=== PATIENT | female | born 1955 | race Caucasian/White ===

== ENCOUNTER → 2016-08-08 | Outpatient (CLI) | payer OTHER ==
[~2016-08-08] MED LIST: BIMA0.01 OPB; CIPR-255 PO; OXYC-57 PO; PHEN-1043 PO; PRMVC PV
--- NOTE | 2016-08-08 13:07 | DIAGNOSTIC IMAGING REPORT ---
BILATERAL CAROTID DOPPLER STUDY HISTORY: Visual change LOW TENSION GLAUCOMA COMPARISON: None. TECHNIQUE: Real-time, grayscale, and color Doppler sonography of the carotid arteries was performed. Imaging reviewed in the transverse and longitudinal planes. All measurements were calculated based on NASCET criteria. FINDINGS: Antegrade flow is seen in the bilateral vertebral arteries. The brachial pressures are hemodynamically similar. The peak systolic velocity within the right ICA is 67. The right systolic ratio is 1.0. The peak systolic velocity within the left ICA is 71. The left systolic ratio is 1.0. IMPRESSION: No hemodynamically significant stenosis seen within the carotid arteries. Minimal plaque formation bilaterally Electronically signed by: Shawn Loza M.D. 08/08/2016 1:04 PM Dictated Date/Time: 08/08/2016 12:51 PM
== END | disposition home or self-care (01) ==
LOC: C.ULTR 12:09
PROVIDERS: ATTEND Ophthalmology
DX: H40.1231 Low-tension glaucoma, bilateral, mild stage (principal)

== ENCOUNTER 2017-04-01 13:18 | Inpatient (IN) | payer OTHER ==
[~2017-04-01] VITALS: Ht 152.4 cm; Wt 66.0 kg
[2017-04-01] MEDS ORDERED: ONDANSETRON INJ 2 MG/ML 2 ML VIAL ONE (13:41)
[2017-04-01] MEDS ORDERED: KETOROLAC TROMETHAMINE 30 MG/ML VIAL IV STA (13:57)
[2017-04-01] MEDS ORDERED: SODIUM CHLORIDE 0.9% 1000ML 1,000 ML IV STA (13:57)
[2017-04-01] MEDS ORDERED: ONDANSETRON INJ 2 MG/ML 2 ML VIAL IV STA ×2 (13:57→14:01)
[2017-04-01] MEDS ORDERED: HYDROmorphone INJ 0.5 MG/0.5 ML SYR IV STA (13:57)
[2017-04-01 14:04] LABS: BASO % 0.7 %; BASO ABS # 0.06 K/uL (0-0.2); COMPLETE YES; EOS % 2.6 %; HEMATOCRIT 40.1 % (37-47); IG% 0.6 %; LYMPH % 43.8 %; MEAN CELL VOLUME 91.6 fL (80-100); MEAN CORPUSCULAR HEMOGLOBIN 30.6 pg (25-34); MEAN CORPUSCULAR HGB CONC 33.4 g/dl (32-36); MEAN PLATELET VOLUME 9.8 fL (7.4-10.4); MONO % 6.4 %; NEUT % 45.9 %; PLATELET COUNT 321 K/uL (130-400); RED BLOOD COUNT 4.38 M/uL (4.2-5.4); WHITE BLOOD COUNT 8.22 K/uL (4.8-10.8)
[2017-04-01 14:27] LABS: BUN/CREATININE RATIO 16.3 (10-20); CREATININE 1.48 mg/dl (0.60-1.20); POTASSIUM 3.3 mmol/L (3.5-5.1)
[2017-04-01] MEDS ORDERED: BIMA0.01 OPB (14:36)
[2017-04-01] MEDS ORDERED: PRMVC PV (14:36)
--- NOTE | 2017-04-01 15:26 | DIAGNOSTIC IMAGING REPORT ---
CT SCAN OF THE ABDOMEN AND PELVIS WITHOUT IV CONTRAST CLINICAL HISTORY: Right flank pain. Nausea and vomiting. COMPARISON STUDY: No priors. TECHNIQUE: CT scan of the abdomen and pelvis is performed from the lung bases to the proximal femora. Images are reviewed in the axial, sagittal, and coronal planes. IV contrast was not administered for this examination as per the referring clinician. A dose lowering technique was utilized adhering to the principles of ALARA. CT DOSE: 797.44 mGy.cm FINDINGS: Lung bases: The heart is normal in size and without pericardial effusion. There is bibasilar scarring versus atelectasis. Mild bronchiectasis is present in the lower lobes. No airspace consolidation or pleural effusion is seen. There is a tiny hiatal hernia. Liver: The unenhanced liver is normal in size, contour, and attenuation. There is no intrahepatic biliary ductal dilatation. Gallbladder: Unremarkable. Spleen: Normal in size and attenuation. Pancreas: The unenhanced pancreas is grossly unremarkable. Adrenal glands: Unremarkable. Kidneys: The unenhanced kidneys demonstrate cortical atrophy. There is a 7 mm obstructing calculus at the right vesicoureteral junction seen on image #[id number]. This causes moderate right hydroureteronephrosis. There is associated right-sided perinephric and periureteric stranding. No left hydronephrosis is seen. There are at least 4 additional nonobstructing right renal calculi measuring up to 6 mm. There are least 5 nonobstructing left renal calculi measuring up to 9 mm. There is no evidence of contour deforming renal mass lesion. Abdominal vasculature: The abdominal aorta is normal in course and caliber noting mild atherosclerotic calcification. Bowel: There is mild colonic diverticulosis without CT evidence of acute diverticulitis. No bowel obstruction is seen. The appendix is not identified and reported surgically absent. Peritoneum: There is no intraperitoneal free air or abdominal ascites. There is a small fat-containing umbilical hernia. Lymphadenopathy: None. Pelvic viscera: The bladder is normal as visualized. Exophytic uterine fibroids are suggested. No adnexal lesion is seen. Skeletal structures: The skeletal structures are osteopenic. Mild lumbosacral spondylosis is observed. No lytic or blastic lesions are seen. IMPRESSION: 1. There is a 7 mm obstructing calculus at the right vesicoureteral junction. This causes moderate right hydroureteronephrosis. 2. Additional bilateral nonobstructing renal calculi as above. 3. Mild colonic diverticulosis without CT evidence of acute diverticular dose. 4. Suspect uterine fibroids. 5. Additional findings as above. Electronically signed by: Jaciel Pelayo M.D. 04/01/2017 3:24 PM Dictated Date/Time: 04/01/2017 3:18 PM
[2017-04-01] MEDS: HYDROmorphone INJ 0.5 MG/0.5 ML SYR IV PRN ×2 (15:38→16:52)
[2017-04-01 15:54] LABS: URINE APPEARANCE CLOUDY (CLEAR); URINE BILIRUBIN NEG (NEG); URINE COLOR YELLOW; URINE EPITHELIAL CELL AUTO >30 /lpf (0-5); URINE NITRITE NEG (NEG); UROBILINOGEN NEG (NEG); ZZUR CULT IF INDIC CLEAN CATCH YES
[2017-04-01 16:46] LABS: MANUAL MICROSCOPIC REQUIRED? NO; REVIEW REQ? NO
[2017-04-01] MEDS ORDERED: METOCLOPRAMIDE HCL INJ 5 MG/ML 2 ML VIAL IV STA (16:49)
[2017-04-01] MEDS ORDERED: DiphenhydrAMINE HCL 50 MG/ML VIAL IV STA (16:49)
[2017-04-01] MEDS ORDERED: METOCLOPRAMIDE HCL INJ 5 MG/ML 2 ML VIAL ONE (16:50)
--- NOTE | 2017-04-01 19:21 | EMERGENCY ROOM VISIT NOTE ---
History Report prepared by Tahira: Galina Bob Under the Supervision of: Dr. Philip Kincaid M.D. First contact with patient: 13:44 Chief Complaint: FLANK PAIN Stated Complaint: ABDOMINAL PAIN History of Present Illness The patient is a 62 year old female who presents to the Emergency Room with complaints of worsening right flank pain starting this afternoon. The patient currently rates her pain as a 6/10 in severity. She states that the pain starts in her back and radiates to the front. She notes a history of kidney stones and states that this feels the same. She reports her last stone was 23 years ago. She notes that she had little bursts of the pain with the last being four days ago. The patient complains of nausea and vomiting. She reports that she has vomited 6 times. Pt denies LOC, headache, fevers, chills, diaphoresis, visual changes, neck pain , chest pain, breathing difficulties, abdominal pain, melena, hematochezia, urinary symptoms, numbness, weakness, lymphadenopathy, rash, or other complaints. Source of History: patient Onset: this afternoon Position: other (right flank) Symptom Intensity: 6/10 Quality: other (radiating) Timing: worsening Associated Symptoms: + nausea, + vomiting Review of Systems See HPI for pertinent positives and negatives. A total of ten systems were reviewed and were otherwise negative. Past Medical & Surgical Medical Problems: (1) Kidney stones Surgical Problems: (1) S/P knee replacement Family History No pertinent family history Social History Smoking Status: Never Smoker Marital Status: Housing Status: lives with significant other Occupation Status: employed Current/Historical Medications Scheduled Bimatoprost (Lumigan), 1 DROPS OPB HS Estrogens, Conjugated (Premarin), 1 APPLN PV WK Allergies Coded Allergies: Sulfa Drugs (Verified Allergy, Unknown, 04/01/17) Physical Exam Vital Signs Date Time Temp Pulse Resp B/P (MAP) Pulse Ox O2 Delivery O2 Flow Rate FiO2 04/01/17 17:35 94 Nasal Cannula 2.0 04/01/17 17:30 76 18 129/47 98 Room Air 04/01/17 15:30 73 18 150/50 95 Room Air 04/01/17 13:26 36.8 79 18 165/84 95 Room Air Physical Exam GENERAL: Awake, alert, very uncomfortable-appearing, in no distress, actively vomiting HENT: Normocephalic, atraumatic. Oropharynx unremarkable. EYES: Normal conjunctiva. Sclera non-icteric. NECK: Supple. No nuchal rigidity. FROM. No JVD. RESPIRATORY: Clear to auscultation. CARDIAC: Regular rate, normal rhythm. Extremities warm and well perfused. Pulses equal. ABDOMEN: Soft, non-distended. Mild RUQ tenderness to palpation. No rebound or guarding. No masses. RECTAL: Deferred. MUSCULOSKELETAL: Chest examination reveals no tenderness. The back is symmetrical on inspection without obvious abnormality. There is significant right CVA tenderness to palpation. No joint edema. LOWER EXTREMITIES: Calves are equal size bilaterally and non-tender. No edema. No discoloration. NEURO: Normal sensorium. No sensory or motor deficits noted. SKIN: No rash or jaundice noted. Medical Decision & Procedures ER Provider Diagnostic Interpretation: Radiology results as stated below per my review and radiologist interpretation: CT SCAN OF THE ABDOMEN AND PELVIS WITHOUT IV CONTRAST CLINICAL HISTORY: Right flank pain. Nausea and vomiting. COMPARISON STUDY: No priors. TECHNIQUE: CT scan of the abdomen and pelvis is performed from the lung bases to the proximal femora. Images are reviewed in the axial, sagittal, and coronal planes. IV contrast was not administered for this examination as per the referring clinician. A dose lowering technique was utilized adhering to the principles of ALARA. CT DOSE: 797.44 mGy.cm FINDINGS: Lung bases: The heart is normal in size and without pericardial effusion. There is bibasilar scarring versus atelectasis. Mild bronchiectasis is present in the lower lobes. No airspace consolidation or pleural effusion is seen. There is a tiny hiatal hernia. Liver: The unenhanced liver is normal in size, contour, and attenuation. There is no intrahepatic biliary ductal dilatation. Gallbladder: Unremarkable. Spleen: Normal in size and attenuation. Pancreas: The unenhanced pancreas is grossly unremarkable. Adrenal glands: Unremarkable. Kidneys: The unenhanced kidneys demonstrate cortical atrophy. There is a 7 mm obstructing calculus at the right vesicoureteral junction seen on image #[id number]. This causes moderate right hydroureteronephrosis. There is associated right-sided perinephric and periureteric stranding. No left hydronephrosis is seen. There are at least 4 additional nonobstructing right renal calculi measuring up to 6 mm. There are least 5 nonobstructing left renal calculi measuring up to 9 mm. There is no evidence of contour deforming renal mass lesion. Abdominal vasculature: The abdominal aorta is normal in course and caliber noting mild atherosclerotic calcification. Bowel: There is mild colonic diverticulosis without CT evidence of acute diverticulitis. No bowel obstruction is seen. The appendix is not identified and reported surgically absent. Peritoneum: There is no intraperitoneal free air or abdominal ascites. There is a small fat-containing umbilical hernia. Lymphadenopathy: None. Pelvic viscera: The bladder is normal as visualized. Exophytic uterine fibroids are suggested. No adnexal lesion is seen. Skeletal structures: The skeletal structures are osteopenic. Mild lumbosacral spondylosis is observed. No lytic or blastic lesions are seen. IMPRESSION: 1. There is a 7 mm obstructing calculus at the right vesicoureteral junction. This causes moderate right hydroureteronephrosis. 2. Additional bilateral nonobstructing renal calculi as above. 3. Mild colonic diverticulosis without CT evidence of acute diverticular dose. 4. Suspect uterine fibroids. 5. Additional findings as above. Electronically signed by: Jaciel Pelayo M.D. 04/01/2017 3:24 PM Dictated Date/Time: 04/01/2017 3:18 PM Laboratory Results 04/01/17 13:45 Red Blood Count 4.38, Mean Corpuscular Volume 91.6, Mean Corpuscular Hemoglobin 30.6, Mean Corpuscular Hemoglobin Concent 33.4, Mean Platelet Volume 9.8, Neutrophils (%) (Auto) 45.9, Lymphocytes (%) (Auto) 43.8, Monocytes (%) (Auto) 6.4, Eosinophils (%) (Auto) 2.6, Basophils (%) (Auto) 0.7, Neutrophils # (Auto) 3.77, Lymphocytes # (Auto) 3.60, Monocytes # (Auto) 0.53, Eosinophils # (Auto) 0.21, Basophils # (Auto) 0.06 04/01/17 13:45 Test 04/01/17 13:45 04/01/17 15:30 White Blood Count 8.22 K/uL (4.8-10.8) Red Blood Count 4.38 M/uL (4.2-5.4) Hemoglobin 13.4 g/dL (12.0-16.0) Hematocrit 40.1 % (37-47) Mean Corpuscular Volume 91.6 fL (80-100) Mean Corpuscular Hemoglobin 30.6 pg (25-34) Mean Corpuscular Hemoglobin Concent 33.4 g/dl (32-36) Platelet Count 321 K/uL (130-400) Mean Platelet Volume 9.8 fL (7.4-10.4) Neutrophils (%) (Auto) 45.9 % Lymphocytes (%) (Auto) 43.8 % Monocytes (%) (Auto) 6.4 % Eosinophils (%) (Auto) 2.6 % Basophils (%) (Auto) 0.7 % Neutrophils # (Auto) 3.77 K/uL (1.4-6.5) Lymphocytes # (Auto) 3.60 K/uL (1.2-3.4) Monocytes # (Auto) 0.53 K/uL (0.11-0.59) Eosinophils # (Auto) 0.21 K/uL (0-0.5) Basophils # (Auto) 0.06 K/uL (0-0.2) RDW Standard Deviation 46.8 fL (36.4-46.3) RDW Coefficient of Variation 14.0 % (11.5-14.5) Immature Granulocyte % (Auto) 0.6 % Immature Granulocyte # (Auto) 0.05 K/uL (0.00-0.02) Anion Gap 7.0 mmol/L (3-11) Est Creatinine Clear Calc Drug Dose 34.3 ml/min Estimated GFR () 44.1 Estimated GFR (Non- 38.1 BUN/Creatinine Ratio 16.3 (10-20) Calcium Level 9.0 mg/dl (8.5-10.1) Total Bilirubin 0.4 mg/dl (0.2-1) Direct Bilirubin 0.1 mg/dl (0-0.2) Aspartate Amino Transf (AST/SGOT) 22 U/L (15-37) Alanine Aminotransferase (ALT/SGPT) 29 U/L (12-78) Alkaline Phosphatase 99 U/L (45-117) Total Protein 7.6 gm/dl (6.4-8.2) Albumin 3.8 gm/dl (3.4-5.0) Lipase 277 U/L (73-393) Urine Color YELLOW Urine Appearance CLOUDY (CLEAR) Urine pH 6.0 (4.5-7.5) Urine Specific [place] 1.020 (1.000-1.030) Urine Protein NEG (NEG) Urine Glucose (UA) NEG (NEG) Urine Ketones NEG (NEG) Urine Occult Blood 3+ (NEG) Urine Nitrite NEG (NEG) Urine Bilirubin NEG (NEG) Urine Urobilinogen NEG (NEG) Urine Leukocyte Esterase SMALL (NEG) Urine WBC (Auto) 10-30 /hpf (0-5) Urine RBC (Auto) >30 /hpf (0-4) Urine Hyaline Casts (Auto) 1-5 /lpf (0-5) Urine Epithelial Cells (Auto) >30 /lpf (0-5) Urine Bacteria (Auto) NEG (NEG) Laboratory results reviewed by me Medications Administered Medications (Trade) Dose Ordered Sig/Grant Route Start Time Stop Time Status Last Admin Dose Admin Ondansetron HCl (Zofran Inj) 4 mg NOW STAT IV 04/01/17 13:57 04/01/17 13:58 DC 04/01/17 13:57 4 MG Sodium Chloride 1,000 ml @ 999 mls/hr Q1H1M STAT IV 04/01/17 13:57 04/01/17 14:57 DC 04/01/17 14:18 999 MLS/HR Hydromorphone HCl (Dilaudid Inj) 0.5 mg NOW STAT IV 04/01/17 13:57 04/01/17 13:58 DC 04/01/17 14:17 0.5 MG Ketorolac Tromethamine (Toradol Inj) 10 mg NOW STAT IV 04/01/17 13:57 04/01/17 13:59 DC 04/01/17 14:18 10 MG Hydromorphone HCl (Dilaudid Inj) 0.5 mg Q15M PRN IV 04/01/17 14:00 04/15/17 13:59 04/01/17 16:52 0.5 MG Ondansetron HCl (Zofran Inj) 4 mg NOW STAT IV 04/01/17 14:01 04/01/17 14:02 PR 04/01/17 14:18 4 MG Metoclopramide HCl (Reglan Inj) 5 mg NOW STAT IV 04/01/17 16:49 04/01/17 16:51 DC 04/01/17 16:52 5 MG Diphenhydramine HCl (Benadryl Inj) 12 mg NOW STAT IV 04/01/17 16:49 04/01/17 16:51 DC 04/01/17 16:56 12 MG ED Course 1341: Ordered Zofran Inj 4 mg .ROUTE. 1349: The patient was evaluated in room B12A. A complete history and physical exam was performed. 1357: Ordered Toradol Inj 10 mg IV, Dilaudid Inj 0.5 mg IV, NSS 1000 ml @ 999 mls/hr IV, Zofran Inj 4 mg IV. 1400: Ordered Dilaudid Inj 0.5 mg PRN IV pain. 1401: Ordered Zofran Inj 4 mg IV. 1517: I reevaluated the patient and she is feeling better. 1525: I reevaluated the patient and her pain started again. 1724: I reevaluated the patient and updated her on the treatment plan. 1728: Discussed the patient's case with Dr. Kramer. The patient will be evaluated for further treatment and disposition. Medical Decision Prior records/ancillary studies reviewed. Triage Nursing notes reviewed and agree them. Additional history obtained from the family. The patient's history was concerning for flank and abdominal pain. Differential diagnosis: Etiologies such as renal colic, appendicitis, diverticulitis, mesenteric ischemia, aortic pathology, infections, inflammatory bowel disease, PUD, biliary pathology, UTI, as well as others were entertained. Physical examination findings: As above. ER treatment provided: Multiple doses of IV Dilaudid IV Zofran 2 IV Reglan IV Benadryl On reassessment the patient felt marginally better. She still nauseated and experiencing pain Diagnostic interpretation by me: The labs revealed an unremarkable CBC and chemistry panel. Urinalysis revealed hematuria. There was no sign of UTI. Imaging studies: CT of the abdomen and pelvis as above. The patient is asymptomatic from a large kidney stone. She cannot tolerate oral intake at this time. She will need to be treated in the hospital. Consultation: A consultation was placed with the hospitalist. The case was discussed and diagnostics were reviewed. The patient was evaluated in the ER for further treatment. Medication Reconcilliation Current Medication List: was personally reviewed by me Blood Pressure Screening Patient's blood pressure: Elevated blood pressure Will be further monitored by hospitalist. Consults Time Called: 172 Consulting Physician: Dr. Kramer Returned Call: [phone] Discussed the patient's case with Dr. Kramer. The patient will be evaluated for further treatment and disposition. Impression Primary Impression: Ureterolithiasis Additional Impressions: Intractable pain Intractable vomiting Scribe Attestation The scribe's documentation has been prepared under my direction and personally reviewed by me in its entirety. I confirm that the note above accurately reflects all work, treatment, procedures, and medical decision making performed by me. Departure Information Dispostion Being Evaluated By Hospitalist Referrals Hay Gayle M.D. (PCP) Patient Instructions My [facility] Problem Qualifiers
[2017-04-01] MEDS ORDERED: HYDROmorphone INJ 0.5 MG/0.5 ML SYR IV PRN (19:45)
[2017-04-01] MEDS ORDERED: ONDANSETRON INJ 2 MG/ML 2 ML VIAL IV PRN (19:45)
[2017-04-01 20:30] VITALS: Ht 152.4 cm; Wt 66.0 kg
[2017-04-01 20:36] VITALS: BP 115/73; PULSE 68; TEMP 36.6; O2SAT 95
[2017-04-01] MEDS: NSS + 20MEQ KCL 1000ML 1,000 ML IV SCH (20:53)
[2017-04-01] MEDS: METOCLOPRAMIDE HCL INJ 5 MG/ML 2 ML VIAL IV SCH (21:45)
--- NOTE | 2017-04-01 23:08 | History and Physical ---
History & Physical Date & Time of Service: Apr 01, 2017 at 22:55 Chief Complaint: Ureterolithiasis Primary Care Physician: Debora Prakash D.O. 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 She was treated with multiple rounds of antiemetics and pain medicine in the ER. She was found on the CT scan of the abdomen and pelvis to have an obstructing 7 mm stone on the right side with moderate hydroureteronephrosis on the right with perinephric stranding. She also had multiple bilateral nonobstructing renal stones. Her creatinine was elevated at 1.48 and she is unaware of any baseline chronic kidney disease. She has not had any urinary symptoms or fevers at home. She did not have an elevated white blood cell count here She will be admitted for obstructive ureterolithiasis with a large stone and will need urology consultation for definitive management. She is also admitted for acute kidney injury. Past Medical/Surgical History PMH: Nephrolithiasis Vaginal atrophy Osteoarthritis Glaucoma PSH: Right TKA Lithotripsy 2 C-sections Appendectomy 2 laparoscopies for pelvic pain with adhesions Family History No pertinent family history Dad-Parkinson's disease, gastric cancer, in his late 80s Mom-dementia, of a CVA at age 88 Brother-liver cancer, hepatitis, previous IV drug abuser Brother-healthy Sister-healthy Social History Smoking Status: Never Smoker Alcohol Use: occasionally Drug Use: none Marital Status: Housing status: lives with family Occupational Status: employed (as a respiratory therapist here at [employer]) Multi-Drug Resistant Organisms History of MDRO: No Allergies Coded Allergies: Sulfa Antibiotics (Verified Allergy, Unknown, Unknown, 04/01/17) Home Medications Scheduled Bimatoprost (Lumigan), 1 DROPS OPB HS Estrogens, Conjugated (Premarin), 1 APPLN PV WK Review of Systems Constitutional: No fever, No chills Eyes: No problem reported ENT: No problem reported Respiratory: No cough, No shortness of breath Cardiovascular: No chest pain Abdomen: + pain, + nausea, + vomiting, + diarrhea (intermittently for the last 2 weeks) Musculoskeletal: + joint pain (chronic joint pains) Genitourinary - Female: No dysuria, No urinary frequency, No urinary urgency Neurologic: No problem reported Psychiatric: No problem reported Endocrine: No problem reported Hematologic / Lymphatic: No problem reported Integumentary: No problem reported Allergic / Immunologic: No problem reported Physical Exam Vital Signs Date Time Temp Pulse Resp B/P (MAP) Pulse Ox O2 Delivery O2 Flow Rate FiO2 04/01/17 20:36 36.6 68 17 115/73 (87) 95 Room Air 04/01/17 20:30 Room Air 04/01/17 20:13 36.8 75 18 101/57 94 Free Flow/[place] 04/01/17 19:00 36.7 78 18 100/62 94 Nasal Cannula 2.0 04/01/17 17:35 94 Nasal Cannula 2.0 04/01/17 17:30 76 18 129/47 98 Room Air 04/01/17 15:30 73 18 150/50 95 Room Air 04/01/17 13:26 36.8 79 18 165/84 95 Room Air General Appearance: WD/WN, no apparent distress Head: normocephalic, atraumatic Eyes: normal inspection, PERRL, EOMI, sclerae normal ENT: hearing grossly normal, pharynx normal Neck: supple, no adenopathy, trachea midline Respiratory/Chest: lungs clear, normal breath sounds, no respiratory distress, no accessory muscle use Cardiovascular: regular rate, rhythm, no edema, no gallop, no murmur, normal peripheral pulses Abdomen/GI: normal bowel sounds, soft, no organomegaly, no pulsatile mass, + tenderness (in the right lower quadrant without guarding or rebound), + pertinent finding (negative for CVA tenderness) Back: no CVA tenderness Extremities/Musculoskelatal: normal inspection, no calf tenderness, normal capillary refill, no pedal edema, normal range of motion Neurologic/Psych: alert, normal mood/affect, oriented x 3 Skin: normal color, warm/dry, no rash Lymphatic: no adenopathy Diagnostics Laboratory Results Results Past 24 Hours Test 04/01/17 13:45 04/01/17 15:30 Range/Units White Blood Count 8.22 4.8-10.8 K/uL Red Blood Count 4.38 4.2-5.4 M/uL Hemoglobin 13.4 12.0-16.0 g/dL Hematocrit 40.1 37-47 % Mean Corpuscular Volume 91.6 80-100 fL Mean Corpuscular Hemoglobin 30.6 25-34 pg Mean Corpuscular Hemoglobin Concent 33.4 32-36 g/dl Platelet Count 321 130-400 K/uL Mean Platelet Volume 9.8 7.4-10.4 fL Neutrophils (%) (Auto) 45.9 % Lymphocytes (%) (Auto) 43.8 % Monocytes (%) (Auto) 6.4 % Eosinophils (%) (Auto) 2.6 % Basophils (%) (Auto) 0.7 % Neutrophils # (Auto) 3.77 1.4-6.5 K/uL Lymphocytes # (Auto) 3.60 1.2-3.4 K/uL Monocytes # (Auto) 0.53 0.11-0.59 K/uL Eosinophils # (Auto) 0.21 0-0.5 K/uL Basophils # (Auto) 0.06 0-0.2 K/uL RDW Standard Deviation 46.8 36.4-46.3 fL RDW Coefficient of Variation 14.0 11.5-14.5 % Immature Granulocyte % (Auto) 0.6 % Immature Granulocyte # (Auto) 0.05 0.00-0.02 K/uL Sodium Level 137 136-145 mmol/L Potassium Level 3.3 3.5-5.1 mmol/L Chloride Level 103 98-107 mmol/L Carbon Dioxide Level 27 21-32 mmol/L Anion Gap 7.0 3-11 mmol/L Blood Urea Nitrogen 24 7-18 mg/dl Creatinine 1.48 0.60-1.20 mg/dl Est Creatinine Clear Calc Drug Dose 34.3 ml/min Estimated GFR () 44.1 Estimated GFR (Non- 38.1 BUN/Creatinine Ratio 16.3 10-20 Random Glucose 116 70-99 mg/dl Calcium Level 9.0 8.5-10.1 mg/dl Total Bilirubin 0.4 0.2-1 mg/dl Direct Bilirubin 0.1 0-0.2 mg/dl Aspartate Amino Transf (AST/SGOT) 22 15-37 U/L Alanine Aminotransferase (ALT/SGPT) 29 12-78 U/L Alkaline Phosphatase 99 45-117 U/L Total Protein 7.6 6.4-8.2 gm/dl Albumin 3.8 3.4-5.0 gm/dl Lipase 277 73-393 U/L Urine Color YELLOW Urine Appearance CLOUDY CLEAR Urine pH 6.0 4.5-7.5 Urine Specific [place] 1.020 1.000-1.030 Urine Protein NEG NEG Urine Glucose (UA) NEG NEG Urine Ketones NEG NEG Urine Occult Blood 3+ NEG Urine Nitrite NEG NEG Urine Bilirubin NEG NEG Urine Urobilinogen NEG NEG Urine Leukocyte Esterase SMALL NEG Urine WBC (Auto) 10-30 0-5 /hpf Urine RBC (Auto) >30 0-4 /hpf Urine Hyaline Casts (Auto) 1-5 0-5 /lpf Urine Epithelial Cells (Auto) >30 0-5 /lpf Urine Bacteria (Auto) NEG NEG Microbiology Results 04/01/17 Urine Culture, Received Pending Diagnostic Radiology CT abdomen/pelvis: 1. There is a 7 mm obstructing calculus at the right vesicoureteral junction. This causes moderate right hydroureteronephrosis. 2. Additional bilateral nonobstructing renal calculi as above. 3. Mild colonic diverticulosis without CT evidence of acute diverticular dose. 4. Suspect uterine fibroids. 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 She was treated with multiple rounds of antiemetics and pain medicine in the ER. She was found on the CT scan of the abdomen and pelvis to have an obstructing 7 mm stone on the right side with moderate hydroureteronephrosis on the right with perinephric stranding. She also had multiple bilateral nonobstructing renal stones. Her creatinine was elevated at 1.48 and she is unaware of any baseline chronic kidney disease. She has not had any urinary symptoms or fevers at home. She did not have an elevated white blood cell count here She will be admitted for obstructive ureterolithiasis with a large stone and will need urology consultation for definitive management. She is also admitted for acute kidney injury. Right sided obstructive ureterolithiasis with right hydroureteronephrosis/Nausea /vomiting-no evidence of infection at this time,, UA looks abnormal but is grossly contaminated with epithelial cells. She is afebrile and has no leukocytosis. She does not need antibiotics at this time. -Admit to medical/surgical floor -Consult urology for definitive management of her large kidney stone -Continue IV Dilaudid as needed for pain -Continue Zofran and Reglan as needed for nausea and vomiting which is likely related to pain in the kidney stone -We'll start antibiotics only if spikes fever and then will need more urgent urology management -Continue IV fluids with normal saline with 20 of KCl at 125 ML's per hour Acute kidney injury-most likely acute as patient is unaware of any chronic kidney disease, creatinine was 1.48 on admission. His likely due to obstructive stone and hydronephrosis. -Continue IV fluids -Management of kidney stone -Follow PRP Hypokalemia-mild -Replacing potassium in IV fluids as above Glaucoma-stable -Lumigan drops to continue Prophylaxis-SCDs only in case of need for procedure Disposition to home when stable Full code Level of Care Med/Surg Advanced Directives Existing Living Will: Yes Existing Power of Credit Assistant: Yes Resuscitation Status FULL RESUSCITATION VTE Prophylaxis VTE Risk Assessment Done? Y/N: Yes Risk Level: Low Given or contraindicated: SCD's Additional Copies To Debora Prakash D.O.
[2017-04-01 23:30] VITALS: BP 117/48; PULSE 65; TEMP 37.1; O2SAT 96
[2017-04-01] MEDS ORDERED: BIMATOPROST 0.01% OP SOLN 2.5 ML BTL OPB SCH (23:30)
[2017-04-02] MEDS: NSS + 20MEQ KCL 1000ML 1,000 ML IV SCH ×2 (03:49→12:30)
[2017-04-02] MEDS: METOCLOPRAMIDE HCL INJ 5 MG/ML 2 ML VIAL IV SCH ×3 (03:49→16:00)
[2017-04-02 06:44] LABS: BASO % 0.6 %; BASO ABS # 0.04 K/uL (0-0.2); COMPLETE YES; EOS % 1.8 %; HEMATOCRIT 37.6 % (37-47); IG% 0.1 %; LYMPH % 26.4 %; LYMPH ABS # 1.77 K/uL (1.2-3.4); MEAN CELL VOLUME 92.4 fL (80-100); MEAN CORPUSCULAR HGB CONC 32.4 g/dl (32-36); MEAN PLATELET VOLUME 9.6 fL (7.4-10.4); MONO % 7.3 %; NEUT % 63.8 %; PLATELET COUNT 261 K/uL (130-400); RED BLOOD COUNT 4.07 M/uL (4.2-5.4)
[2017-04-02 07:17] LABS: BUN/CREATININE RATIO 17.5 (10-20); CALCIUM 7.9 mg/dl (8.5-10.1); CREATININE 0.98 mg/dl (0.60-1.20); POTASSIUM 4.1 mmol/L (3.5-5.1)
[2017-04-02 08:00] VITALS: BP 120/72; PULSE 68; TEMP 36.9; O2SAT 94
[2017-04-02 08:10] VITALS: O2SAT 94
--- NOTE | 2017-04-02 09:30 | DIAGNOSTIC IMAGING REPORT ---
CHEST 2 VIEWS ROUTINE CLINICAL HISTORY: PRE-OP preoperative evaluation COMPARISON STUDY: No previous studies for comparison. FINDINGS: The bones soft tissues and hemidiaphragms are normal. The cardiomediastinal silhouette is normal. The lungs are clear. The pulmonary vasculature is normal. IMPRESSION: Negative chest. The above report was generated using voice recognition software. It may contain grammatical, syntax or spelling errors. Electronically signed by: Shawn Loza M.D. 04/02/2017 9:28 AM Dictated Date/Time: 04/02/2017 9:28 AM
--- NOTE | 2017-04-02 09:33 | DIAGNOSTIC IMAGING REPORT ---
KUB HISTORY: Calculus of the right ureterovesicular junction RIGHT UVJ STONE COMPARISON: CT abdomen and pelvis 04/01/2017 FINDINGS: The bowel gas pattern is non-obstructive. There is no organomegaly. Bilateral nephrolithiasis redemonstrated. Largest calculus measures 9 mm projecting over the inferior pole left kidney. Previously described linear 7 mm calculus of the right ureterovesicular junction appears unchanged. Multiple phleboliths of the pelvis redemonstrated. No pneumoperitoneum or pneumatosis. No fracture. IMPRESSION: 1. Unchanged position of the 7 mm calculus of the right ureterovesicular junction. 2. Bilateral nephrolithiasis redemonstrated. Electronically signed by: Santo Martinez M.D. 04/02/2017 9:32 AM Dictated Date/Time: 04/02/2017 9:30 AM
[2017-04-02] MEDS ORDERED: PHENAZOPYRIDINE HCL 200 MG TAB PO PRN (10:45)
--- NOTE | 2017-04-02 10:52 | Urology Consultation ---
History General Date of Service: Apr 02, 2017. Chief Complaint: right flank pain Primary Care Physician: Debora Prakash D.O. Pt seen a urologist before?: Yes If yes, why?: 20 years ago for kidney stones History of Present Illness 62 yo female presents to [facility] with c/o right flank pain that started while working yesterday. CT scan showing a 7mm right UVJ stone. The pt has a previous hx of stones ~20 years ago requiring ESWL and stent placement. Her pain is currently improved this morning 1-06/09. Denies n/v, dysuria, or hematuria. She is afebrile. White count is normal. Cr has improved to 0.98 from 1.48 this morning. Imaging Imaging: CT Laboratory Last 24 Hours Test 04/01/17 13:45 04/01/17 15:30 04/02/17 06:15 White Blood Count 8.22 K/uL 6.70 K/uL Red Blood Count 4.38 M/uL 4.07 M/uL Hemoglobin 13.4 g/dL 12.2 g/dL Hematocrit 40.1 % 37.6 % Mean Corpuscular Volume 91.6 fL 92.4 fL Mean Corpuscular Hemoglobin 30.6 pg 30.0 pg Mean Corpuscular Hemoglobin Concent 33.4 g/dl 32.4 g/dl Platelet Count 321 K/uL 261 K/uL Mean Platelet Volume 9.8 fL 9.6 fL Neutrophils (%) (Auto) 45.9 % 63.8 % Lymphocytes (%) (Auto) 43.8 % 26.4 % Monocytes (%) (Auto) 6.4 % 7.3 % Eosinophils (%) (Auto) 2.6 % 1.8 % Basophils (%) (Auto) 0.7 % 0.6 % Neutrophils # (Auto) 3.77 K/uL 4.27 K/uL Lymphocytes # (Auto) 3.60 K/uL 1.77 K/uL Monocytes # (Auto) 0.53 K/uL 0.49 K/uL Eosinophils # (Auto) 0.21 K/uL 0.12 K/uL Basophils # (Auto) 0.06 K/uL 0.04 K/uL RDW Standard Deviation 46.8 fL 48.3 fL RDW Coefficient of Variation 14.0 % 14.0 % Immature Granulocyte % (Auto) 0.6 % 0.1 % Immature Granulocyte # (Auto) 0.05 K/uL 0.01 K/uL Sodium Level 137 mmol/L 140 mmol/L Potassium Level 3.3 mmol/L 4.1 mmol/L Chloride Level 103 mmol/L 109 mmol/L Carbon Dioxide Level 27 mmol/L 26 mmol/L Anion Gap 7.0 mmol/L 5.0 mmol/L Blood Urea Nitrogen 24 mg/dl 17 mg/dl Creatinine 1.48 mg/dl 0.98 mg/dl Est Creatinine Clear Calc Drug Dose 34.3 ml/min 51.8 ml/min Estimated GFR () 44.1 72.7 Estimated GFR (Non- 38.1 62.7 BUN/Creatinine Ratio 16.3 17.5 Random Glucose 116 mg/dl 83 mg/dl Calcium Level 9.0 mg/dl 7.9 mg/dl Total Bilirubin 0.4 mg/dl Direct Bilirubin 0.1 mg/dl Aspartate Amino Transf (AST/SGOT) 22 U/L Alanine Aminotransferase (ALT/SGPT) 29 U/L Alkaline Phosphatase 99 U/L Total Protein 7.6 gm/dl Albumin 3.8 gm/dl Lipase 277 U/L Urine Color YELLOW Urine Appearance CLOUDY Urine pH 6.0 Urine Specific [place] 1.020 Urine Protein NEG Urine Glucose (UA) NEG Urine Ketones NEG Urine Occult Blood 3+ Urine Nitrite NEG Urine Bilirubin NEG Urine Urobilinogen NEG Urine Leukocyte Esterase SMALL Urine WBC (Auto) 10-30 /hpf Urine RBC (Auto) >30 /hpf Urine Hyaline Casts (Auto) 1-5 /lpf Urine Epithelial Cells (Auto) >30 /lpf Urine Bacteria (Auto) NEG Magnesium Level 2.0 mg/dl Hepatitis C Antibody Screen NEG Problem List Medical Problems: (1) Intractable pain Status: Acute (2) Intractable vomiting Status: Acute (3) Ureterolithiasis Status: Acute Past History glaucoma, kidney stones, osteoarthritis, other (vaginal atrophy) Past Surgical History: appendectomy, , exploratory laparoscopy (for pelvic lesions ), lithotripsy, TKR, ureteral stent Family History Dad-Parkinson's disease, gastric cancer, in his late 80s Mom-dementia, of a CVA at age 88 Brother-liver cancer, hepatitis, previous IV drug abuser Brother-healthy Sister-healthy Social History Smoking: non-smoker Alcohol: occasional Drug use: none Marital status: Housing status: lives with family 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[employer]) History of MDRO No Allergies Coded Allergies: Sulfa Antibiotics (Verified Allergy, Unknown, Unknown, 04/01/17) Medications Home Medications: Home Meds and Scripts Medications Dose Route/Sig Max Daily Dose Days Date Category Lumigan (Bimatoprost) 0.01 % Amaya 1 Drops OPB HS 04/01/17 Reported Premarin (Estrogens, Conjugated) 14 Appln/30 Gm Cr 1 Appln PV WK 04/01/17 Reported Inpatient Medications: Current Inpatient Medications Medications (Trade) Dose Ordered Sig/Grant Route Start Time Stop Time Status Last Admin Dose Admin Ondansetron HCl (Zofran Inj) 4 mg Q6H PRN IV 04/01/17 19:45 05/01/17 19:44 Hydromorphone HCl (Dilaudid Inj) 0.5 mg Q3H PRN IV 04/01/17 19:45 04/15/17 19:44 04/01/17 21:46 0.5 MG Metoclopramide HCl (Reglan Inj) 5 mg Q6H IV 04/01/17 22:00 05/01/17 21:59 04/02/17 10:21 5 MG Potassium Chloride/Sodium Chloride 1,000 ml @ 125 mls/hr Q8H IV 04/01/17 20:45 05/01/17 20:44 04/02/17 03:49 125 MLS/HR Bimatoprost (Lumigan 0.01%) 1 drops HS OPB 04/01/17 23:30 05/01/17 23:29 Ciprofloxacin/ Dextrose (Cipro / D5W) 400 mg PREOP ONCE IV 04/02/17 11:00 04/02/17 11:01 UNV Tamsulosin HCl (Flomax Cap) 0.4 mg HS PO 04/02/17 21:00 05/02/17 20:59 UNV Phenazopyridine HCl (Pyridium Tab) 200 mg TID PRN PO 04/02/17 10:45 05/02/17 10:44 UNV Review of Systems Review of Systems Constitutional: No fever, No chills Eyes: No double vision Neurological: No dizzy Endocrine: No excessive thirst Gastrointestinal: + abdominal pain (right flank pain ), No nausea, No vomiting Cardiovascular: No chest pain Respiratory: No shortness of breath Skin: No rash Musculoskeletal: + back pain (right low back pain ) Female : No painful urination, No blood in urine Physical Exam Vital Signs: Vital Signs Past 12 Hours Date Time Temp Pulse Resp B/P (MAP) Pulse Ox O2 Delivery O2 Flow Rate FiO2 04/02/17 08:10 94 Room Air 04/02/17 08:00 36.9 68 18 120/72 (88) 94 Room Air 04/02/17 07:50 Room Air 04/01/17 23:30 37.1 65 16 117/48 (71) 96 Room Air 04/01/17 23:15 Room Air Physical Exam: General Appearance: no apparent distress Eyes: bilateral eyes normal inspection ENT: hearing grossly normal Neck: no JVD Respiratory/Chest: no respiratory distress, no accessory muscle use Cardiovascular: no JVD Extremities: normal inspection Neurologic/Psychiatric: alert, normal mood/affect, oriented x 3 Skin: normal color Assessment & Plan Assessment & Plan Treatment Planned: ureteroscopy w/ laser, cystoscopy w/ stent A/P: Right UVJ stone AFVSS. Stone is approximately 5mm on KUB. Tx options discussed with the pt today have included a trial of passage with MET , ESWL (not available on 04-13), or cystoscopy with right ureteroscopy, laser lithotripsy, stone extraction, and stent placement today. The pt prefers OR today for right URS with Dr. Brown. Risks and benefits of the procedure discussed with the pt. All questions answered. Pt agrees to the procedure at this time. Thanks for the consult. Will continue to follow along with primary service.
[2017-04-02] MEDS ORDERED: CIPROFLOXACIN 400MG / 200ML D5W IV SCH (11:00)
--- NOTE | 2017-04-02 14:33 | Discharge Summary ---
Discharge Summary Date of Service Apr 02, 2017. Discharge Summary Admission Date: Apr 01, 2017 at 19:35 Discharge Date: Apr 02, 2017 Discharge Disposition: Home Principal Diagnosis: R obstructive ureterolithiasis w/ R hydroureteronephrosis Problems/Secondary Diagnoses: N/V CLEVE Hypokalemia Glaucoma Suspected uterine fibroids Diverticulosis Procedures: CT SCAN OF THE ABDOMEN AND PELVIS WITHOUT IV CONTRAST CLINICAL HISTORY: Right flank pain. Nausea and vomiting. COMPARISON STUDY: No priors. TECHNIQUE: CT scan of the abdomen and pelvis is performed from the lung bases to the proximal femora. Images are reviewed in the axial, sagittal, and coronal planes. IV contrast was not administered for this examination as per the referring clinician. A dose lowering technique was utilized adhering to the principles of ALARA. CT DOSE: 797.44 mGy.cm FINDINGS: Lung bases: The heart is normal in size and without pericardial effusion. There is bibasilar scarring versus atelectasis. Mild bronchiectasis is present in the lower lobes. No airspace consolidation or pleural effusion is seen. There is a tiny hiatal hernia. Liver: The unenhanced liver is normal in size, contour, and attenuation. There is no intrahepatic biliary ductal dilatation. Gallbladder: Unremarkable. Spleen: Normal in size and attenuation. Pancreas: The unenhanced pancreas is grossly unremarkable. Adrenal glands: Unremarkable. Kidneys: The unenhanced kidneys demonstrate cortical atrophy. There is a 7 mm obstructing calculus at the right vesicoureteral junction seen on image #[id number]. This causes moderate right hydroureteronephrosis. There is associated right-sided perinephric and periureteric stranding. No left hydronephrosis is seen. There are at least 4 additional nonobstructing right renal calculi measuring up to 6 mm. There are least 5 nonobstructing left renal calculi measuring up to 9 mm. There is no evidence of contour deforming renal mass lesion. Abdominal vasculature: The abdominal aorta is normal in course and caliber noting mild atherosclerotic calcification. Bowel: There is mild colonic diverticulosis without CT evidence of acute diverticulitis. No bowel obstruction is seen. The appendix is not identified and reported surgically absent. Peritoneum: There is no intraperitoneal free air or abdominal ascites. There is a small fat-containing umbilical hernia. Lymphadenopathy: None. Pelvic viscera: The bladder is normal as visualized. Exophytic uterine fibroids are suggested. No adnexal lesion is seen. Skeletal structures: The skeletal structures are osteopenic. Mild lumbosacral spondylosis is observed. No lytic or blastic lesions are seen. IMPRESSION: 1. There is a 7 mm obstructing calculus at the right vesicoureteral junction. This causes moderate right hydroureteronephrosis. 2. Additional bilateral nonobstructing renal calculi as above. 3. Mild colonic diverticulosis without CT evidence of acute diverticular dose. 4. Suspect uterine fibroids. 5. Additional findings as above. Electronically signed by: Jaciel Pelayo M.D. 04/01/2017 3:24 PM Dictated Date/Time: 04/01/2017 3:18 PM The status of this report is Signed. Draft = Not yet reviewed or approved by Radiologist. Signed = Reviewed and approved by Radiologist. KUB HISTORY: Calculus of the right ureterovesicular junction RIGHT UVJ STONE COMPARISON: CT abdomen and pelvis 04/01/2017 FINDINGS: The bowel gas pattern is non-obstructive. There is no organomegaly. Bilateral nephrolithiasis redemonstrated. Largest calculus measures 9 mm projecting over the inferior pole left kidney. Previously described linear 7 mm calculus of the right ureterovesicular junction appears unchanged. Multiple phleboliths of the pelvis redemonstrated. No pneumoperitoneum or pneumatosis. No fracture. IMPRESSION: 1. Unchanged position of the 7 mm calculus of the right ureterovesicular junction. 2. Bilateral nephrolithiasis redemonstrated. Electronically signed by: Santo Martinez M.D. 04/02/2017 9:32 AM Dictated Date/Time: 04/02/2017 9:30 AM The status of this report is Signed. Draft = Not yet reviewed or approved by Radiologist. Signed = Reviewed and approved by Radiologist. CHEST 2 VIEWS ROUTINE CLINICAL HISTORY: PRE-OP preoperative evaluation COMPARISON STUDY: No previous studies for comparison. FINDINGS: The bones soft tissues and hemidiaphragms are normal. The cardiomediastinal silhouette is normal. The lungs are clear. The pulmonary vasculature is normal. IMPRESSION: Negative chest. The above report was generated using voice recognition software. It may contain grammatical, syntax or spelling errors. Electronically signed by: Shawn Loza M.D. 04/02/2017 9:28 AM Dictated Date/Time: 04/02/2017 9:28 AM The status of this report is Signed. Draft = Not yet reviewed or approved by Radiologist. Signed = Reviewed and approved by Radiologist. Immediate Operative Summary Operative Date Apr 02, 2017. Pre-Operative Diagnosis Right vesicoureteral junction stone Post-Operative Diagnosis Right vesicoureteral junction stone Procedure(s) Performed Cystoscopy, Right Retrograde Pyleogram, Right SemiRigid Ureteroscopy, Laser Lithotripsy Holmium, Right Basket Stone Extraction, and Right Ureteral Stent Placement Surgeon Dr. Declan Brown Primer Waterproofing Machine Operator Surgeon(s) None Estimated Blood Loss 0 cc Findings Edematous ureter with impacted stone fragmented and extracted, no residual stone or ureteral injury on exit ureteroscopy. Specimens A: Right distal ureteral stone fragments for chemical analysis Drains 6 fr 24 cm JJ R ureteral stent Anesthesia GALMA Complication(s) None Disposition Recovery Room / PACU <Electronically signed by Declan rBown MD> Signed: 04/02/17 1628 Signed: The status of this report is Signed * If report status is Draft, the document has not been finalized by the responsible provider Consultations: Urology Medication Reconciliation New Medications: Ciprofloxacin Hcl (Cipro) 500 Mg Tab 1 TAB PO BID for 3 Days, #6 TAB Oxycodone/Acetaminophen 5MG/325MG (Percocet 5MG/325MG) Tab 1 TABLET PO Q4H PRN for Pain, #20 TAB Phenazopyridine HCl (Phenazopyridine HCl) 200 Mg Tab 200 MG PO TID PRN for Bladder pain, #24 TAB Continued Medications: Bimatoprost (Lumigan) 0.01 % Amaya 1 DROPS OPB HS Estrogens, Conjugated (Premarin) 14 Appln/30 Gm Cr 1 APPLN PV WK Discharge Exam Review of Systems: Constitutional: No fever, No chills, No sweats, No weakness, No fatigue ENT: No hearing loss Respiratory: No cough, No shortness of breath, No hemoptysis Cardiovascular: No chest pain, No edema, No palpitations Abdomen: No pain, No nausea, No vomiting, No diarrhea, No constipation Musculoskeletal: No joint pain, No muscle pain, No swelling, No calf pain Genitourinary - Female: No dysuria, No urinary frequency, No hematuria Neurologic: No memory loss, No numbness/tingling Psychiatric: No depression symptoms, No anxiety Endocrine: No fatigue Hematologic / Lymphatic: No abnormal bleeding/bruising Integumentary: No rash, No itch, No new/changing skin lesions Physical Exam: General Appearance: no apparent distress Eyes: normal inspection, PERRL ENT: hearing grossly normal Neck: supple Respiratory/Chest: lungs clear, no respiratory distress, no accessory muscle use Cardiovascular: regular rate, rhythm Abdomen / GI: normal bowel sounds, non tender, soft Extremities: no calf tenderness, no pedal edema Neurologic/Psychiatric: alert, normal mood/affect, oriented x 3 Skin: normal color, warm/dry, no rash Hospital Course Admission H&P: This patient is a 62-year-old female with a history of nephrolithiasis, glaucoma , and osteoarthritis who presented with acute onset of severe right-sided flank pain radiating down to her right groin along with intractable nausea and vomiting 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 She was treated with multiple rounds of antiemetics and pain medicine in the ER. She was found on the CT scan of the abdomen and pelvis to have an obstructing 7 mm stone on the right side with moderate hydroureteronephrosis on the right with perinephric stranding. She also had multiple bilateral nonobstructing renal stones. Her creatinine was elevated at 1.48 and she is unaware of any baseline chronic kidney disease. She has not had any urinary symptoms or fevers at home. She did not have an elevated white blood cell count here She will be admitted for obstructive ureterolithiasis with a large stone and will need urology consultation for definitive management. She is also admitted for acute kidney injury. Physical Exam Vital Signs Date Time Temp Pulse Resp B/P (MAP) Pulse Ox O2 Delivery O2 Flow Rate FiO2 04/01/17 20:36 36.6 68 17 115/73 (87) 95 Room Air 04/01/17 20:30 Room Air 04/01/17 20:13 36.8 75 18 101/57 94 Free Flow/Blowby 04/01/17 19:00 36.7 78 18 100/62 94 Nasal Cannula 2.0 04/01/17 17:35 94 Nasal Cannula 2.0 04/01/17 17:30 76 18 129/47 98 Room Air 04/01/17 15:30 73 18 150/50 95 Room Air 04/01/17 13:26 36.8 79 18 165/84 95 Room Air General Appearance: WD/WN, no apparent distress Head: normocephalic, atraumatic Eyes: normal inspection, PERRL, EOMI, sclerae normal ENT: hearing grossly normal, pharynx normal Neck: supple, no adenopathy, trachea midline Respiratory/Chest: lungs clear, normal breath sounds, no respiratory distress, no accessory muscle use Cardiovascular: regular rate, rhythm, no edema, no gallop, no murmur, normal peripheral pulses Abdomen/GI: normal bowel sounds, soft, no organomegaly, no pulsatile mass, + tenderness (in the right lower quadrant without guarding or rebound), + pertinent finding (negative for CVA tenderness) Back: no CVA tenderness Extremities/Musculoskelatal: normal inspection, no calf tenderness, normal capillary refill, no pedal edema, normal range of motion Neurologic/Psych: alert, normal mood/affect, oriented x 3 Skin: normal color, warm/dry, no rash Lymphatic: no adenopathy R obstructive ureterolithiasis w/ R hydroureteronephrosis, N/V: - Admitted to med/surg - UCx w/ pin-point growth - IV fluids with normal saline with 20 of KCl at 125 ML's per hour - IV Dilaudid PRN for pain management - Flomax 0.4 mg HS and Pyridium 200 mg TID PRN - Continue Zofran and Reglan PRN for nausea and vomiting which is likely related to pain in the kidney stone - Consult Urology- R TANK w/ Dr. Brown on 04/02 -- Cipro 500 mg BID x3 days, Percocet PRN for pain management, Pyridium PRN for dysuria CLEVE- RESOLVED: - Treated w/ IVF - Management of kidney stone - Follow PRP Hypokalemia- RESOLVED: Replaced potassium in IVF as above Glaucoma: Continue Lumigan drops DVT prophylaxis: SCDs Code Status: LEVEL I, FULL Dispo: Discharge to home Total Time Spent: Greater than 30 minutes This includes examination of the patient, discharge planning, medication reconciliation, and communication with other providers. Discharge Instructions Please refer to the electronic Patient Visit Report (Discharge Instructions) for additional information. Follow-Up Please follow-up with your PCP within 5-7 days Please follow-up with Urology as instructed by Dr. Brown Please follow-up/keep all of your subspecialty appointments Additional Copies To Debora Prakash D.O. Reviewed: Pt Seen/Exam by Me History Physician Primer Waterproofing Machine Operator Supervision Note: I interviewed and examined the patient. Discussed with SHELBY Olmstead and agree with findings and plan as documented in the note. Any exceptions or clarifications are listed here: Pt seen right after return from ureteral stent placement. SHe feels very good, no N/V, no flank or abdominal pain, no chest pain, no SOB. Vitals reviewed NAD, AAOx3 RRR no mgr CTAB no wcr Abd +BS soft NT ND Ext no edema 62 yo female with right sided ureterolithiasis with right sided hydronephrosis, N/V secondary to pain. All symptoms resolved, CLEVE resolved with iVFs alone and should be fine now that no further obstructive stone. Stable for dc to home with Cipro x 3 days, pyridium prn, and percocet prn pain F/u with Urology with KUB prior on Apr 13 for removal of stent Ur culture still showing "pin-point growth" at time of discharge and final Urine cx result should be followed up by PCP after discharge. Cipro should cover empirically. 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 She was treated with multiple rounds of antiemetics and pain medicine in the ER. She was found on the CT scan of the abdomen and pelvis to have an obstructing 7 mm stone on the right side with moderate hydroureteronephrosis on the right with perinephric stranding. She also had multiple bilateral nonobstructing renal stones. Her creatinine was elevated at 1.48 and she is unaware of any baseline chronic kidney disease. She has not had any urinary symptoms or fevers at home. She did not have an elevated white blood cell count here She will be admitted for obstructive ureterolithiasis with a large stone and will need urology consultation for definitive management. She is also admitted for acute kidney injury. Right sided obstructive ureterolithiasis with right hydroureteronephrosis/Nausea /vomiting-no evidence of infection at this time,, UA looks abnormal but is grossly contaminated with epithelial cells. She is afebrile and has no leukocytosis. She does not need antibiotics at this time. -Admit to medical/surgical floor -Consult urology for definitive management of her large kidney stone -Continue IV Dilaudid as needed for pain -Continue Zofran and Reglan as needed for nausea and vomiting which is likely related to pain in the kidney stone -We'll start antibiotics only if spikes fever and then will need more urgent urology management -Continue IV fluids with normal saline with 20 of KCl at 125 ML's per hour Acute kidney injury-most likely acute as patient is unaware of any chronic kidney disease, creatinine was 1.48 on admission. His likely due to obstructive stone and hydronephrosis. -Continue IV fluids -Management of kidney stone -Follow PRP Hypokalemia-mild -Replacing potassium in IV fluids as above Glaucoma-stable -Lumigan drops to continue Prophylaxis-SCDs only in case of need for procedure Disposition to home when stable Full code
--- NOTE | 2017-04-02 14:37 | Discharge Instructions ---
Discharge Instructions Date of Service Apr 02, 2017. Admission Reason for Admission: Ureterolithiasis Discharge Discharge Diagnosis / Problem: Kidney stone Discharge Goals Goal(s): Decrease discomfort, Improve function, Increase independence, Improve disease control, Learn about illness, Diagnostic testing, Therapeutic intervention, Prevent Disease Progression Activity Recommendations Activity Limitations: as noted below Lifting Limitations: no more than 25 pounds, gradually increase as tolerated Exercise/Sports Limitations: rest today, gradually increase as tolerated May Resume Sexual Activity: after two weeks Shower/Bathe: no limitations Driving or Machine Use: resume 1 day after discharge . Instructions / Follow-Up Instructions / Follow-Up New Medications: Ciprofloxacin 500 mg twice daily until prescription is completed Percocet 1 tablet every 4 hours as needed for pain control Pyridium 200 mg three times daily as needed for urinary pain Resume all regular home medications as prescribed FOLLOW-UPS: Please follow-up with your PCP within 5-7 days Please follow-up with Urology as instructed by Dr. Brown- Apr 13 at 12:45 at our [facility] with KUB X-ray beforehand for removal of stent Please follow-up/keep all of your subspecialty appointments Current Hospital Diet Patient's current hospital diet: Clear Liquid Diet Discharge Diet Recommended Diet: Regular Diet Procedures Procedures Performed: Right ureteroscopy, laser lithotripsy and stent placement Pending Studies Studies pending at discharge: yes List of pending studies: Stone analysis Medical Emergencies . Who to Call and When: Medical Emergencies: If at any time you feel your situation is an emergency, please call 911 immediately. . Non-Emergent Contact Non-Emergency issues call your: Urologist Call Non-Emergent contact if: you have a fever, temperature is above 101, your pain is not controlled, your pain is worsening, your pain is unusual for you, your pain is concerning you, you have any medication questions . . "Provider Documentation" section prepared by Izabella Olmstead. . VTE Core Measure Inpt VTE Proph given/why not?: SCD's [place] Drug Monitoring Program Search Results: patient reviewed within database, no issues identified
[2017-04-02] MEDS ORDERED: MIDAZOLAM HCL 1 MG/ML 2ML VIAL ONE (15:28)
[2017-04-02] MEDS ORDERED: PROPOFOL IV EMULSION 10 MG/ML 20 ML VIAL IV ONE (15:28)
[2017-04-02] MEDS ORDERED: ONDANSETRON INJ 2 MG/ML 2 ML VIAL ONE (15:28)
[2017-04-02] MEDS ORDERED: FENTANYL CITRATE INJ 50 MCG/1 ML 2 ML VIAL ONE (15:28)
[2017-04-02] MEDS ORDERED: DEXAMETHASONE SOD INJ 4 MG/ML VIAL ONE (15:28)
[2017-04-02] MEDS ORDERED: LIDOCAINE HCL 2% 2 ML VIAL (20MG/ML) ONE (15:28)
[2017-04-02] MEDS ORDERED: NURSING VERBAL MED ORDER ONE (15:30)
[2017-04-02] MEDS ORDERED: LACTATED RINGER'S 1000ML 1,000 ML IV SCH (15:50)
[2017-04-02] MEDS ORDERED: CONRAY 30% 150ML BOTTLE ONE (15:51)
[2017-04-02] MEDS ORDERED: MEPERIDINE HCL 25 MG/ML CARP IV PRN (16:00)
[2017-04-02] MEDS ORDERED: HYDROmorphone INJ 1 MG/ML SYR IV PRN (16:00)
[2017-04-02] MEDS ORDERED: ATROPINE SULFATE 0.1 MG/ML 5ML SYR IV PRN (16:00)
[2017-04-02] MEDS ORDERED: ONDANSETRON INJ 2 MG/ML 2 ML VIAL IV PRN (16:00)
[2017-04-02] MEDS ORDERED: FENTANYL CITRATE INJ 50 MCG/1 ML 2 ML VIAL IV PRN (16:00)
[2017-04-02] MEDS ORDERED: EpHEDrine SULFATE INJ 50 MG/ML AMP IV PRN (16:00)
--- NOTE | 2017-04-02 16:28 | [facility] Post Operative Brief Note ---
Immediate Operative Summary Operative Date Apr 02, 2017. Pre-Operative Diagnosis Right vesicoureteral junction stone Post-Operative Diagnosis Right vesicoureteral junction stone Procedure(s) Performed Cystoscopy, Right Retrograde Pyleogram, Right SemiRigid Ureteroscopy, Laser Lithotripsy Holmium, Right Basket Stone Extraction, and Right Ureteral Stent Placement Surgeon Dr. Declan Brown Nutrition Partner Surgeon(s) None Estimated Blood Loss 0 cc Findings Edematous ureter with impacted stone fragmented and extracted, no residual stone or ureteral injury on exit ureteroscopy. Specimens A: Right distal ureteral stone fragments for chemical analysis Drains 6 fr 24 cm JJ R ureteral stent Anesthesia GALMA Complication(s) None Disposition Recovery Room / PACU
[2017-04-02] MEDS ORDERED: OXYC-57 PO (16:29)
[2017-04-02] MEDS ORDERED: CIPR-255 PO (16:29)
[2017-04-02] MEDS ORDERED: PHEN-1043 PO (16:29)
--- NOTE | 2017-04-02 16:40 | [facility] Operative Report ---
Operative Report Operative Date Apr 02, 2017. Pre-Operative Diagnosis Right vesicoureteral junction stone Post-Operative Diagnosis Right vesicoureteral junction stone Procedure(s) Performed Cystoscopy, right retrograde pyelography, semirigid ureteroscopy, laser lithotripsy, basket stone extraction and right ureteral stent placement Surgeon Dr. Declan Brown Dry Cleaning Checker Surgeon(s) None Estimated Blood Loss 0 cc Findings Impacted stone in edematous ureter fragmented and extracted, no residual stones or ureteral injury to proximal ureter, good stent position on fluoroscopy. Specimens A: Right distal ureteral stone fragments for chemical analysis Drains 6 fr 24 cm JJ R ureteral stent Anesthesia GALMA Complication(s) None Disposition Recovery Room / PACU Indications Patient is a 62-year-old female who is seen in consultation by our service for intractable colic from a right distal ureteral stone. After discussion of risks and benefits of various forms of management she is decided upon endoscopic management acutely as an inpatient. Please see urology consultation for further details. Patient was covered with intravenous ciprofloxacin for perioperative coverage. SCDs used for DVT prophylaxis. Description of Procedure Patient was properly identified and brought in the operative suite after identification of appropriate consent of the chart. General anesthesia with laryngeal mask was initiated and patient was prepped and draped in the standard fashion for this procedure. Full timeout procedure was followed. 22 Latvian rigid cystoscope was passed into the bladder under direct visualization bladder was surveyed in its entirety including 30 and 70 lenses. This demonstrated an edematous and inflamed right ureteral orifice with mild trigonal inflammation. Left ureteral orifice was noted to be within normal limits and effluxing clear yellow urine. No intravesical papillary masses, mucosal abnormalities or bowel calculi were appreciated. Right-sided distal ureteral stone was appreciated on second facing baster imaging. Retrograde pyelography was performed on the right-hand side demonstrating mild to moderate fullness of the ureter. Interestingly a pelvic calcification felt to possibly represent a stone was noted to be outside the lumen of the ureter and therefore likely a phlebolith. Sensor tip wire was able to be easily advanced up to the level of the right renal pelvis and kept until the end of the case as a safety wire. A semirigid short ureteroscope was then able to be advanced into the right distal ureter without difficulties. The patient's offending stone was immediately encountered and then fragmented into small pieces using a 270 fiber. These were then grasped using a 0 tip basket and deposited within the bladder for extraction at the end of the case. After the stone had been extracted ureteroscope was able to be advanced up to the level of the proximal ureter without difficulties or resistance. No residual stones proximally were appreciated. Complete exit ureteroscopy was performed demonstrating no residual stones, tears or injuries to the ureter or other significant abnormalities save for distal edema as previously appreciated. Cystoscope was then loaded over the safety wire and a 6 Latvian 24 cm double-J ureteral stent was advanced with a full coil at the level of the renal pelvis and a full coil present on direct visualization within the bladder. Small stone fragments were irrigated free from the bladder and sent for chemical analysis. Bladder was drained and cystoscope was removed. Anesthesia was reversed and patient was transferred to the recovery room in stable condition. Follow-up care: Patient will be readmitted to the floor for p.m. meal. She should be stable for discharge home if she tolerates her by mouth intake and is comfortable on oral pain medication. Prescription for Percocet, Pyridium and ciprofloxacin was placed in the chart. The postoperative appointment on April 13 for stent removal after KUB x-ray is confirmed. Care was discussed with the patient's who is present in the hospital today per her request. I attest to the content of the Intraoperative Record and any orders documented therein. Any exceptions are noted below.
[2017-04-02] MEDS ORDERED: OXYCODONE/ACETAMINOPHEN 5-325 TAB PO PRN ×2 (16:45)
--- NOTE | 2017-04-02 17:03 | DIAGNOSTIC IMAGING REPORT ---
RETROGRADE INCLUDES KUB CLINICAL HISTORY: RT CYSTO/LASER COMPARISON STUDY: CT scan dated 04/01/2017 FINDINGS: 4 fluoroscopic spot images are provided for interpretation. 42 seconds of fluoroscopic time was utilized. The right ureter was catheterized in a retrograde fashion. No ureteral filling defects are demonstrated. Only the inferior one half of the ureter was delineated. The final 2 images demonstrate placement of a nephroureteral stent. Only the proximal pigtail is visualized. IMPRESSION: Intraoperative fluoroscopic spot images obtained during a laser lithotripsy and stent placement. Electronically signed by: Jamie Bryan M.D. 04/02/2017 5:01 PM Dictated Date/Time: 04/02/2017 5:00 PM
[2017-04-02 17:15] VITALS: BP 135/78; PULSE 79; TEMP 36.4; O2SAT 95
--- NOTE | 2017-04-02 17:20 | Anesthesiology Progress Note ---
Anesthesia Post Op Note Date & Time Apr 02, 2017 at 17:19 Vital Signs Pain Intensity: 0 Vital Signs Past 12 Hours Date Time Temp Pulse Resp B/P (MAP) Pulse Ox O2 Delivery O2 Flow Rate FiO2 04/02/17 16:56 133/69 04/02/17 16:52 80 21 04/02/17 16:52 84 21 98 04/02/17 16:51 135/73 04/02/17 16:47 87 27 04/02/17 16:47 86 27 98 04/02/17 16:46 157/98 04/02/17 16:45 36.3 95 17 133/69 (95) 98 Room Air 04/02/17 16:42 82 21 98 04/02/17 16:42 81 21 04/02/17 16:41 126/54 04/02/17 16:40 82 13 98 04/02/17 16:40 83 13 04/02/17 16:39 83 15 04/02/17 16:39 83 15 04/02/17 16:39 83 15 97 04/02/17 16:39 83 15 97 04/02/17 16:36 131/70 04/02/17 16:36 131/70 04/02/17 16:34 89 17 04/02/17 16:34 87 17 97 04/02/17 16:34 87 17 97 04/02/17 16:34 89 17 04/02/17 16:31 133/68 04/02/17 16:31 133/68 04/02/17 16:29 98 13 04/02/17 16:29 98 13 97 04/02/17 16:29 98 13 97 04/02/17 16:29 98 13 04/02/17 16:25 118/60 04/02/17 16:25 118/60 04/02/17 16:24 36.4 92 16 118/60 (75) 96 Oxymask 10 04/02/17 15:15 36.8 62 12 141/75 (97) 93 Room Air 62 04/02/17 08:10 94 Room Air 04/02/17 08:00 36.9 68 18 120/72 (88) 94 Room Air 04/02/17 07:50 Room Air Notes Mental Status: alert / awake / arousable, participated in evaluation Pt Amnestic to Procedure: Yes Nausea / Vomiting: adequately controlled Pain: adequately controlled Airway Patency, RR, SpO2: stable & adequate BP & HR: stable & adequate Hydration State: stable & adequate Anesthetic Complications: no major complications apparent
[2017-04-02 18:15] VITALS: BP 126/81; PULSE 70; TEMP 36.9; O2SAT 98
[2017-04-02 18:33] VITALS: BP 126/81; PULSE 70; TEMP 36.9; O2SAT 98
[2017-04-02] MEDS ORDERED: TAMSULOSIN HCL 0.4 MG CAP PO SCH (21:00)
== END 2017-04-02 18:43 | disposition home or self-care (01) | DRG 669 ==
LOC: EDBD 13:18 → EDSEX 13:18 → C.EDA 13:19 → C.MSW 19:35 → ENRESERV 19:57
PROVIDERS: ADMIT Family Medicine; ATTEND Family Medicine
PROC: 0TC68ZZ Extirpation of Matter from Right Ureter, Via Natural or Artificial Opening Endoscopic (ICD-10-PCS; principal; 2017-04-02 15:30)
PROC: BT1DZZZ Fluoroscopy of Right Kidney, Ureter and Bladder (ICD-10-PCS; principal; 2017-04-02 15:30)
PROC: 0T768DZ Dilation of Right Ureter with Intraluminal Device, Via Natural or Artificial Opening Endoscopic (ICD-10-PCS; principal; 2017-04-02 15:30)
DX: N13.2 Hydronephrosis with renal and ureteral calculous obstruction (principal); N17.9 Acute kidney failure, unspecified; E87.6 Hypokalemia; H40.9 Unspecified glaucoma; Z87.442 Personal history of urinary calculi; Z80.0 Family history of malignant neoplasm of digestive organs; Z82.3 Family history of stroke; Z83.79 Family history of other diseases of the digestive system; Z82.0 Family history of epilepsy and other diseases of the nervous system

== ENCOUNTER → 2017-04-13 | Outpatient (CLI) | payer OTHER ==
[~2017-04-13] MED LIST changes: +ACET-1256 PO; +GLUCTAB7 PO
--- NOTE | 2017-04-13 10:58 | DIAGNOSTIC IMAGING REPORT ---
KUB CLINICAL HISTORY: N20.0 [id number] nephrocalcinosis COMPARISON STUDY: 04/02/2017 FINDINGS: Unchanging left renal nephrocalcinosis. Unchanging small central right renal calcification. Interval placement of a right ureteral stent. Calcification of the right ureterovesical junction producing described appears to have passed. IMPRESSION: 1. Unchanging bilateral nephrocalcinosis. 2. Interval placement of a right ureteral stent. 3. Interval passage of a distal right ureteral calculus. The above report was generated using voice recognition software. It may contain grammatical, syntax or spelling errors. Electronically signed by: Shawn Loza M.D. 04/13/2017 10:56 AM Dictated Date/Time: 04/13/2017 10:55 AM
== END | disposition home or self-care (01) ==
LOC: C.RAD 10:23
PROVIDERS: ATTEND Nurse Practitioner Adult Health
DX: N20.0 Calculus of kidney (principal); N20.1 Calculus of ureter; Z96.0 Presence of urogenital implants

== ENCOUNTER → 2017-04-19 | Outpatient (CLI) | payer OTHER ==
[~2017-04-19] MED LIST changes: -CIPR-255 PO; +HYDR-3419 PO; +NITR1CAP33 PO; -OXYC-57 PO; -PHEN-1043 PO
--- NOTE | 2017-04-19 16:01 | DIAGNOSTIC IMAGING REPORT ---
KUB CLINICAL HISTORY: N20.0 [id number] COMPARISON STUDY: 04/13/2017 FINDINGS: The right-sided nephroureteral stent has been removed. Bilateral pelvic basin calcifications likely represent phleboliths. There are 2 tiny right renal calculi. There is an 8 mm lower pole left renal calculus. There is a 2 mm mid pole left renal calculus. IMPRESSION: 1. Bilateral nephrolithiasis 2. Interval removal of the right-sided nephroureteral stent Electronically signed by: Jamie Bryan M.D. 04/19/2017 4:00 PM Dictated Date/Time: 04/19/2017 3:59 PM
== END | disposition home or self-care (01) ==
LOC: C.LAB 15:45
PROVIDERS: ATTEND Urology
DX: N20.0 Calculus of kidney (principal)

== ENCOUNTER → 2017-04-20 | Day surgery (SDC) | payer OTHER ==
[2017-04-17 08:47] VITALS: Ht 152.4 cm; Wt 68.2 kg
[~2017-04-20] VITALS: Ht 152.4 cm; Wt 68.2 kg
[~2017-04-20] MED LIST changes: +ATROPINE SULFATE 0.1 MG/ML 5ML SYR IV PRN; +CIPROFLOXACIN 400MG / D5W IV SCH; +DEXAMETHASONE SOD INJ 4 MG/ML VIAL ONE; +EpHEDrine SULFATE INJ 50 MG/ML AMP IV PRN; +FENTANYL CITRATE INJ 50 MCG/1 ML 2 ML VIAL IV PRN; +FENTANYL CITRATE INJ 50 MCG/1 ML 2 ML VIAL ONE; +KETOROLAC TROMETHAMINE 30 MG/ML VIAL IV. PRN; +LACTATED RINGER'S 1000ML 1,000 ML IV SCH; +LIDOCAINE HCL 2% 2 ML VIAL (20MG/ML) ONE; +MIDAZOLAM HCL 1 MG/ML 2ML VIAL ONE; +NURSING VERBAL MED ORDER ONE; +ONDANSETRON INJ 2 MG/ML 2 ML VIAL IV PRN; +ONDANSETRON INJ 2 MG/ML 2 ML VIAL ONE; +PROPOFOL IV EMULSION 10 MG/ML 20 ML VIAL IV ONE; +TRAMADOL HCL 50 MG TAB ONE
--- NOTE | 2017-04-20 11:29 | History & Physical Bridge - [place] ---
H&P Re-Evaluation Bridge Note: I have examined the patient, reviewed the History & Physical and in the interval since the performance of the History & Physical I have noted the following changes of clinical significance: No changes noted
--- NOTE | 2017-04-20 12:56 | Discharge Instructions-SurgCtr ---
Discharge Instructions Date of Service Apr 20, 2017. Visit Reason for Visit: Stones Discharge Discharge Diagnosis / Problem: l eswl Discharge Goals Goal(s): Decrease discomfort Activity Recommendations Activity Limitations: resume your previous activity Anesthesia . Post Anesthesia Instructions: If you have had General Anesthesia or IV Sedation: * Do not drive today. * Resume driving when surgeon permits. * Do not make important decisions or sign legal documents today. * Call surgeon for: 1. Temperature elevations greater than 101 degrees F. 2. Uncontrollable pain. 3. Excessive bleeding. 4. Persistent nausea and vomiting. 5. Medication intolerance (nausea, vomiting or rash). * For nausea and vomiting use only clear liquids such as: tea, soda, bouillon until nausea subsides, then gradually increase diet as tolerated. * If you have any concerns or questions, call your surgeon's office. If physician is unavailable and it is an emergency, call 911 or go to the nearest emergency room. . Diet Recommendations Home Diet: resume previous diet Procedures Procedures Performed: Left Extracorporeal Shock Wave Lithotripsy Pending Studies Studies pending at discharge: no Medical Emergencies . Who to Call and When: Medical Emergencies: If at any time you feel your situation is an emergency, please call 911 immediately. . Non-Emergent Contact Non-Emergency issues call your: Urologist Call Non-Emergent contact if: temperature is above 100.5 . . "Provider Documentation" section prepared by Stepan Murrieta. .
[2017-04-20 13:40] VITALS: TEMP 36.2
--- NOTE | 2017-04-20 13:51 | Anesthesia Progress Nt - [facility] ---
Anesthesia Post Op Note Date & Time Apr 20, 2017 at 13:51 Vital Signs Pain Intensity: 3 Vital Signs Past 12 Hours Date Time Temp Pulse Resp B/P (MAP) Pulse Ox O2 Delivery O2 Flow Rate FiO2 04/20/17 13:36 144/72 04/20/17 13:35 59 15 04/20/17 13:35 61 15 96 04/20/17 13:34 135/84 04/20/17 13:32 60 15 04/20/17 13:32 36.9 95 Room Air 04/20/17 13:32 60 15 97 04/20/17 13:31 171/94 04/20/17 13:27 59 14 95 04/20/17 13:27 60 14 04/20/17 13:26 162/90 04/20/17 13:22 59 15 04/20/17 13:22 60 15 96 04/20/17 13:21 158/95 04/20/17 13:18 62 13 04/20/17 13:18 62 13 95 04/20/17 13:16 146/100 04/20/17 13:13 63 18 100 04/20/17 13:13 63 18 04/20/17 13:12 62 15 100 04/20/17 13:12 62 15 04/20/17 13:11 147/98 04/20/17 13:07 67 12 04/20/17 13:07 67 12 99 04/20/17 13:06 123/97 04/20/17 13:04 136/92 04/20/17 13:02 36.3 80 12 136/92 97 Mask 6 04/20/17 10:06 36.5 65 20 111/61 (78) 96 Room Air Notes Mental Status: alert / awake / arousable, participated in evaluation Pt Amnestic to Procedure: Yes Nausea / Vomiting: adequately controlled Pain: adequately controlled Airway Patency, RR, SpO2: stable & adequate BP & HR: stable & adequate Hydration State: stable & adequate Anesthetic Complications: no major complications apparent
[2017-04-20 14:15] VITALS: BP 131/84; PULSE 57; O2SAT 96
--- NOTE | 2017-04-20 14:40 | [facility] Post Operative Brief Note ---
Immediate Operative Summary Operative Date Apr 20, 2017. Pre-Operative Diagnosis Left Renal Calculi Post-Operative Diagnosis Same Procedure(s) Performed Left Extracorporeal Shock Wave Lithotripsy Surgeon Dr. Murrieta Whey Department Operator Surgeon(s) None Estimated Blood Loss 0 Findings left renal stone Specimens None
--- NOTE | 2017-04-20 14:43 | OPERATIVE REPORT ---
DATE OF OPERATION: 04/20/2017 PREOPERATIVE DIAGNOSIS: Left renal stone. POSTOPERATIVE DIAGNOSIS: Same. SURGEON: Dr. Murrieta. ANESTHESIA: General. INDICATIONS: The patient is a 62-year-old female with a left renal stone who presents for definitive treatment. The stone was 5 x 8 mm. She was given general anesthesia in the supine position with Venodyne stockings and had been given preoperative antibiotics. The stone was localized in 2 views and she was given 2500 shocks, the majority at level 5. At the end of the procedure, the patient was transferred to the recovery room in stable condition. I attest to the content of the Intraoperative Record and any orders documented therein. Any exception s are noted below.
== END | disposition home or self-care (01) ==
LOC: X.SURG 09:25
PROVIDERS: ATTEND Urology
DX: N20.0 Calculus of kidney (principal)

== ENCOUNTER → 2017-05-02 | Outpatient (CLI) | payer OTHER ==
[~2017-05-02] MED LIST changes: -ATROPINE SULFATE 0.1 MG/ML 5ML SYR IV PRN; -CIPROFLOXACIN 400MG / D5W IV SCH; -DEXAMETHASONE SOD INJ 4 MG/ML VIAL ONE; -EpHEDrine SULFATE INJ 50 MG/ML AMP IV PRN; -FENTANYL CITRATE INJ 50 MCG/1 ML 2 ML VIAL IV PRN; -FENTANYL CITRATE INJ 50 MCG/1 ML 2 ML VIAL ONE; -KETOROLAC TROMETHAMINE 30 MG/ML VIAL IV. PRN; -LACTATED RINGER'S 1000ML 1,000 ML IV SCH; -LIDOCAINE HCL 2% 2 ML VIAL (20MG/ML) ONE; -MIDAZOLAM HCL 1 MG/ML 2ML VIAL ONE; -NURSING VERBAL MED ORDER ONE; -ONDANSETRON INJ 2 MG/ML 2 ML VIAL IV PRN; -ONDANSETRON INJ 2 MG/ML 2 ML VIAL ONE; -PROPOFOL IV EMULSION 10 MG/ML 20 ML VIAL IV ONE; -TRAMADOL HCL 50 MG TAB ONE
--- NOTE | 2017-05-02 14:19 | DIAGNOSTIC IMAGING REPORT ---
KUB CLINICAL HISTORY: N20.0 [id number] COMPARISON STUDY: 04/19/2017 FINDINGS: There is no pathologic bowel dilatation. There is mild fecal retention. The renal shadows are partially obscured by overlying bowel gas and fecal material. Punctate calcifications project over each renal shadow consistent with bilateral nephrolithiasis. The dominant 8 mm lower pole left renal calculus is no longer visualized. Multiple pelvic basin calcifications remain similar in orientation the preceding study. IMPRESSION: 1. Bilateral nephrolithiasis 2. The dominant lower pole 8 mm calculus is no longer visualized. Electronically signed by: Jamie Bryan M.D. 05/02/2017 2:18 PM Dictated Date/Time: 05/02/2017 2:17 PM
== END | disposition home or self-care (01) ==
LOC: C.RAD 13:56
PROVIDERS: ATTEND Urology
DX: N20.0 Calculus of kidney (principal)